=== PATIENT | female | born 2000 | race Caucasian/White ===

== ENCOUNTER 2023-01-03 15:41 | Emergency (ER) | payer BC ==
[~2023-01-03] VITALS: Ht 167.6 cm; Wt 59.4 kg
[2023-01-03 16:19] VITALS: BP 124/75; PULSE 76; RESP 18; TEMP 97.3; O2SAT 100
--- NOTE | 2023-01-03 16:31 | NUR ---
CAS, INFLUENZA AND STREP SWABBED.
[2023-01-03] MEDS ORDERED: BPM/118S31 PO (17:23)
[2023-01-03] MEDS ORDERED: AMOX500C25 PO (17:23)
[2023-01-03] MEDS ORDERED: IBUP-1842 PO (17:23)
--- NOTE | 2023-01-03 17:25 | NUR ---
PT AMBULATED TO BED 07
[2023-01-03 17:32] VITALS: BP 120/75; PULSE 77; RESP 18; TEMP 97.3; O2SAT 100
--- NOTE | 2023-01-03 17:32 | NUR ---
Patient discharged with v/s stable. Written and verbal after care instructions FOR [facility] [employer] given and explained. Patient alert, oriented and verbalized understanding of instructions. Ambulatory with steady gait. All questions addressed prior to discharge. ID band removed. Patient advised to follow up with PMD. Rx of AMOXICILLIN,BROMFED AND MOTRIN given. Opportunity to ask questions provided and answered.
== END 2023-01-03 17:32 | disposition home or self-care (01) ==
LOC: MED 15:41
DX: H66.92 Otitis media, unspecified, left ear (principal); J04.0 Acute laryngitis; Z20.822 Contact with and (suspected) exposure to COVID-19; Z79.899 Other long term (current) drug therapy; Z79.1 Long term (current) use of non-steroidal anti-inflammatories (NSAID); Z79.2 Long term (current) use of antibiotics
CPT/HCPCS: 87081; 99283